=== PATIENT | female | born 1970 ===

== ENCOUNTER 2017-10-15 15:36 | Emergency (ER) | payer OTHER ==
--- NOTE | 2017-10-15 17:00 | C.PDOC ---
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 Patient states she sees a neurologist, Dr. Villegas, who has her on "medication for the ears" and meclizine. Patient reports she has occasional subjective numbness to the right hand. Patient also notes she is diabetic and did not check her sugar today. Denies vomiting or photophobia. Time Seen by Provider: 10/15/17 15:53 Chief Complaint (Nursing): Dizziness/Lightheaded History Per: Patient History/Exam Limitations: no limitations Onset/Duration Of Symptoms: Hrs Current Symptoms Are (Timing): Still Present Seizure Or Post-ictal Symptoms: None Possible Causative Factor(s): Vertigo Fall Associated With With Symptoms: No Recent travel outside of the [place]: No Past Medical History Reviewed: Historical Data, Nursing Documentation, Vital Signs Vital Signs: Last Vital Signs Temp 98.7 F 10/15/17 17:55 Pulse 77 10/15/17 17:55 Resp 16 10/15/17 17:55 BP 135/92 H 10/15/17 17:55 Pulse Ox 100 10/15/17 17:55 - Medical History PMH: HTN, Hypercholesterolemia Surgical History: No Surg Hx Family History: States: Unknown Family Hx - Social History Hx Alcohol Use: No Hx Substance Use: No Review Of Systems Constitutional: Negative for: Fever, Chills Gastrointestinal: Positive for: Nausea. Negative for: Vomiting Musculoskeletal: Negative for: Neck Pain Neurological: Positive for: Numbness (Subjective to right hand), Dizziness. Negative for: Other (Photophobia) Physical Exam - Physical Exam Appears: Non-toxic Skin: Normal Color, Warm, Dry, No Rash Head: Atraumatic, Normacephalic Eye(s): bilateral: Normal Inspection, PERRL, EOMI Ear(s): Bilateral: Normal Nose: Normal Oral Mucosa: Moist Throat: No Erythema, No Exudate Neck: Normal ROM, Supple Chest: Symmetrical, No Tenderness Cardiovascular: Rhythm Regular, No Friction Rub, No Murmur Respiratory: Normal Breath Sounds, No Rales, No Rhonchi, No Wheezing Gastrointestinal/Abdominal: Soft, No Tenderness Extremity: Normal ROM (x4), No Swelling Neurological/Psych: Oriented x3, Normal Speech, Normal Motor, Normal Sensation Gait: Steady ED Course And Treatment O2 Sat by Pulse Oximetry: 99 (Room air) Pulse Ox Interpretation: Normal Medical Decision Making Medical Decision Making: Toradol, antivert, and reglan administered. On reevaluation, patient reports improvement in symptoms and is resting comfortably in the ER in no acute distress, neuro is intact, vitals are stable, will discharge home with Rx and instructions to follow up with neurologist. Disposition - Disposition Referrals: [facility] [Outside] Disposition: HOME/ ROUTINE Disposition Time: 17:35 Condition: GOOD Additional Instructions: Follow up with the medical doctor within 1-2 days without fail. Return if worsened. 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 - Scribe Statement The provider has reviewed the documentation as recorded by the Scribjulian Eisenberg All medical record entries made by the Carlyibjulian were at my direction and personally dictated by me. I have reviewed the chart and agree that the record accurately reflects my personal performance of the history, physical exam, medical decision making, and the department course for this patient. I have also personally directed, reviewed, and agree with the discharge instructions and disposition.
[2017-10-15 17:58] VITALS: BP 135/92; PULSE 77; RESP 16; TEMP 98.7
[2017-10-16 18:21] VITALS: O2SAT 99
== END 2017-10-15 17:55 | disposition home or self-care (01) ==
LOC: C.ER 15:36
DX: R42 Dizziness and giddiness (principal); I10 Essential (primary) hypertension; E78.00 Pure hypercholesterolemia, unspecified
CPT/HCPCS: 96372; 99285; J1885

== ENCOUNTER 2018-05-01 17:12 | Emergency (ER) | payer SELFPAY ==
[2018-05-01 17:23] VITALS: TEMP 98; O2SAT 99
[2018-05-01] MEDS ORDERED: Sodium Chloride 0.9% 1,000 ML IV ONE (17:47)
--- NOTE | 2018-05-01 18:04 | RAD ---
Date of service: 05/01/2018 PROCEDURE: CHEST RADIOGRAPH, 1 VIEW HISTORY: chest pain COMPARISON: Is FINDINGS: LUNGS: Clear. PLEURA: No pneumothorax or pleural fluid seen. CARDIOVASCULAR: No aortic atherosclerotic calcification present. Normal. OSSEOUS STRUCTURES: No significant abnormalities. VISUALIZED UPPER ABDOMEN: Normal. OTHER FINDINGS: None. IMPRESSION: No active disease.
--- NOTE | 2018-05-01 18:05 | C.PDOC ---
History Of Present Illness 47 y/o female presents to the ER complaining of dizziness which has been present for the past 2 weeks. Patient states that she cannot characterize the dizziness. Patient states that feels lightheaded and weak at times. She notes that she recently recovered from viral syndrome. Denies having fever, chills, headache,CP, SOB. <Gallito Cobian - Last Filed: 05/02/18 07:36> <Kandi Lozano - Last Filed: 05/01/18 20:02> History Per: Patient History/Exam Limitations: no limitations Onset/Duration Of Symptoms: Days Current Symptoms Are (Timing): Still Present Severity: Moderate <Gallito Cobian - Last Filed: 05/02/18 07:36> Time Seen by Provider: 05/01/18 17:38 Chief Complaint (Nursing): Dizziness/Lightheaded Past Medical History Vital Signs: Last Vital Signs Temp 98 F 05/01/18 17:16 Pulse 110 H 05/01/18 17:16 Resp 18 05/01/18 17:16 BP 123/82 05/01/18 17:16 Pulse Ox 99 05/01/18 18:36 <Kandi Lozano - Last Filed: 05/01/18 20:02> Reviewed: Historical Data, Nursing Documentation, Vital Signs Vital Signs: Last Vital Signs Temp 98 F 05/01/18 17:16 Pulse 110 H 05/01/18 17:16 Resp 18 05/01/18 17:16 BP 123/82 05/01/18 17:16 Pulse Ox 99 05/01/18 17:16 - Medical History PMH: HTN, Hypercholesterolemia Surgical History: No Surg Hx Family History: States: No Known Family Hx - Social History Hx Alcohol Use: No Hx Substance Use: No <Gallito Cobian - Last Filed: 05/02/18 07:36> Review Of Systems Except As Marked, All Systems Reviewed And Found Negative. Constitutional: Negative for: Fever, Chills Cardiovascular: Negative for: Chest Pain Respiratory: Negative for: Shortness of Breath Gastrointestinal: Negative for: Nausea, Vomiting Neurological: Positive for: Dizziness. Negative for: Headache <Gallito Cobian - Last Filed: 05/02/18 07:36> Physical Exam - Physical Exam Appears: Non-toxic, No Acute Distress Skin: Normal Color, Warm, Dry Head: Atraumatic, Normacephalic Eye(s): bilateral: Normal Inspection, PERRL, EOMI Nose: Normal Oral Mucosa: Moist Neck: Supple Chest: Symmetrical Cardiovascular: Rhythm Regular Respiratory: Normal Breath Sounds, No Rales, No Rhonchi, No Wheezing Gastrointestinal/Abdominal: Soft, No Tenderness, No Guarding, No Rebound Neurological/Psych: Oriented x3, Normal Speech <Gallito Cobian - Last Filed: 05/02/18 07:36> ED Course And Treatment - Laboratory Results Result Diagrams: 05/01/18 18:48 05/01/18 18:48 Lab Results: PT 11.4 SECONDS (9.7-12.2) 05/01/18 18:48 INR 1.0 05/01/18 18:48 APTT 32 SECONDS (21-34) 05/01/18 18:48 Troponin I < 0.0120 ng/mL (0.00-0.120) 05/01/18 18:48 Total Bilirubin 0.4 mg/dL (0.2-1.3) 05/01/18 18:48 AST 28 U/L (14-36) 05/01/18 18:48 ALT 30 U/L (9-52) 05/01/18 18:48 Alkaline Phosphatase 121 U/L (38-126) 05/01/18 18:48 Total Protein 8.3 g/dL (6.3-8.3) 05/01/18 18:48 Albumin 4.8 g/dL (3.5-5.0) 05/01/18 18:48 Globulin 3.5 gm/dL (2.2-3.9) 05/01/18 18:48 Albumin/Globulin Ratio 1.4 (1.0-2.1) 05/01/18 18:48 Urine Color Yellow (YELLOW) 05/01/18 18:48 Urine Clarity Clear (Clear) 05/01/18 18:48 Urine pH 5.0 (5.0-8.0) 05/01/18 18:48 Ur Specific [place] 1.005 (1.003-1.030) 05/01/18 18:48 Urine Protein Negative mg/dL (NEGATIVE) 05/01/18 18:48 Urine Glucose (UA) Normal mg/dL (Normal) 05/01/18 18:48 Urine Ketones Negative mg/dL (NEGATIVE) 05/01/18 18:48 Urine Blood 1+ (NEGATIVE) H 05/01/18 18:48 Urine Nitrate Negative (NEGATIVE) 05/01/18 18:48 Urine Bilirubin Negative (NEGATIVE) 05/01/18 18:48 Urine Urobilinogen Normal mg/dL (0.2-1.0) 05/01/18 18:48 Ur Leukocyte Esterase Neg Tammy/uL (Negative) 05/01/18 18:48 Urine WBC (Auto) < 1 /hpf (0-5) 05/01/18 18:48 Urine RBC (Auto) 8 /hpf (0-3) H 05/01/18 18:48 Ur Squamous Epith Cells 9 /hpf (0-5) H 05/01/18 18:48 - CT Scan/US mri brain 02/10/18 Other Rad Studies (CT/US): Read By Radiologist, Radiology Report Reviewed CT/US Interpretation: Accession No. : [id number]. Patient Name / ID : ANN DE LOS SANTOS / [id number]. Exam Date : 02/10/2018 10:56:50 ( Approved ). Study Comment : Sex / Age : F / 47Y. Creator : Maricarmen Bonilla MD. Dictator : Maricarmen Bonilla MD. Hot Pipe Gauger : Testing And Regulating Technician : Maricarmen Bonilla MD. Approver2 : Report Date : 02/10/2018 13:22:07. My Comment : . Date of service: 02/10/2018. PROCEDURE: MRI BRAIN WITH AND WITHOUT CONTRAST. HISTORY: VERTIGO. COMPARISON: None available. TECHNIQUE: Multiplanar, multisequence MR images of the brain were obtained with and without intravenous contrast enhancement. FINDINGS: HEMORRHAGE: None. DWI: No evidence of an acute or early subacute infarction. BRAIN PARENCHYMA: Campbell-white matter differentiation is preserved. There is no mass, mass effect or abnormal extra- axial fluid collection. There is no territorial infarction. The midline sagittal structures are normal. ENHANCEMENT: No abnormal intracranial enhancement. VENTRICLES: There is mild age advanced global parenchymal volume loss and proportionate enlargement of the ventricles and cortical sulci. CRANIUM: There is normal bone marrow signal pattern. ORBITS: Grossly unremarkable. PARANASAL SINUSES/MASTOIDS: There is mild mucosal thickening in the paranasal sinuses and a retention cyst/polyp in the left maxillary sinus. The mastoid air cells are clear. VASCULAR SYSTEM: There are normal signal voids in the larger intracranial arteries. OTHER FINDINGS: None . IMPRESSION: No acute intracranial abnormality. Mild age advanced global parenchymal volume loss. Retention cyst/polyp in the left maxillary sinus. mri brain/auditory canals 03/03/18 Other Rad Studies (CT/US): Read By Radiologist, Radiology Report Reviewed CT/US Interpretation: Accession No. : [id number]. Patient Name / ID : ANN DE LOS SANTOS / [id number]. Exam Date : 03/03/2018 13:14:22 ( Approved ). Study Comment : Sex / Age : F / 47Y. Creator : Ghanshyam Lopez MD. Dictator : Ghanshyam Lopez MD. Hot Pipe Gauger : Testing And Regulating Technician : Ghanshyam Lopez MD. Approver2 : Report Date : 03/03/2018 15:10:31. My Comment : . Date of service: 03/03/2018. PROCEDURE: MRI OF THE BRAIN AND INTERNAL AUDITORY CANALS WITH AND WITHOUT CONTRAST. HISTORY: RECURRENT DIZZINESS/VERTIGO. COMPARISON: None available. TECHNIQUE: Multiplanar, multisequence MR images of the brain and posterior fossa were obtained with and without contrast. High-resolution posterior fossa and images through the cerebellopontine angle and internal auditory canals included: Axial 3-D fiesta, axial T1 pre-and postcontrast enhanced and coronal T1 pre-and postcontrast enhanced. FINDINGS: IAC/CP ANGLES: INTERNAL AUDITORY CANALS: Unremarkable. CEREBELLOPONTINE ANGLES: Unremarkable. INNER EAR STRUCTURES: Unremarkable. Normally formed cochlea and semicircular canals. No signal abnormality or abnormal enhancement in the membranous labyrinth of the cochlea, vestibule or the semicircular canals. BRAINSTEM: Unremarkable. MASTOIDS: Clear. OTHER: No other notable findings. BRAIN (LIMITED): No mass effect or edema. PARANASAL SINUSES: 3 centimeter left maxillary sinus retention cyst/polyp. IMPRESSION: 3 centimeter left maxillary sinus retention cyst/polyp.Unremarkable pre and post contrast enhanced MRI of the Brain and IACs. <Kandi Lozano - Last Filed: 05/01/18 20:02> - Laboratory Results Result Diagrams: 05/01/18 18:48 05/01/18 18:48 ECG: Interpreted By Me, Viewed By Me ECG Rhythm: Sinus Rhythm Interpretation Of ECG: NSR with no ST/ T wave changes Rate From EC O2 Sat by Pulse Oximetry: 99 (RA) Pulse Ox Interpretation: Normal <Gallito Cobian - Last Filed: 05/02/18 07:36> Medical Decision Making Medical Decision Making: non specific dizziness - ro metabolci infectious cardiac etiology noted neg recnt mri Plan: --Labs --EKG --CXR --IV Fluids endorsed ot awake overnight monitor pending labs and final dispoo <Gallito Cobian - Last Filed: 05/02/18 07:36> Disposition Counseled Patient/Family Regarding: Studies Performed, Diagnosis, Need For Followup, Rx Given - Disposition Disposition Time: 20:00 <Kandi Lozano - Last Filed: 05/01/18 20:02> <Gallito Cobian - Last Filed: 05/02/18 07:36> - Disposition Referrals: Preston Gomez MD [Staff Provider] - Disposition: HOME/ ROUTINE Condition: STABLE Additional Instructions: FOLLOW UP WITH DR GOMEZ SCHEDULED THIS TUESDAY DRINK PLENTY OF FLUIDS USE MECLIZINE 25MG NEEDED RETURN TO EMERGENCY ROOM IF YOUR SYMPTOMS BECOME WORSE SEGUIRSE CON EL DR GOMEZ CHELSEA EST PROGRAMADO ROSHAN JUEVES BEBER MUCHO LQUIDO UTILIZAR MECLIZINE 25MG CHELSEA SE NECESITE VUELVA A LA ELIZA DE EMERGENCIA SI KILEY SNTOMAS SE HACEN PEOR Prescriptions: RX: Meclizine [Meclizine*] 25 mg PO Q6 #15 tab Instructions: Dizziness, Nonvertigo, (DC) Forms: [employer] (Trinidadian) Print Language: CYMRO - Clinical Impression Clinical Impression: Dizziness, Light-headedness - Scribe Statement The provider has reviewed the documentation as recorded by the Scribe Marlen Blanchard Provider Attestation: All medical record entries made by the Scribe were at my direction and personally dictated by me. I have reviewed the chart and agree that the record accurately reflects my personal performance of the history, physical exam, medical decision making, and the department course for this patient. I have also personally directed, reviewed, and agree with the discharge instructions and disposition. <Gallito Cobian - Last Filed: 05/02/18 07:36> Addendum Addendum: 05/01/18 19:55 Patient currently resting comfortably, states she feels some mild light- headedness, but symptoms have improved. She admits to symptoms tom ng present for approx 1 year, has had outpatient MRI that was normal (January 2018 as per patient). Patient has Rx for meclizine, has been taking 12.5mg without relief. She has scheduled appt with ENT Dr. Gomez this . Patient instructed to increase meclizine to 25mg and follow up with Dr. Gomez as scheduled. She understands she should return to ED if her symptoms worsen. <Kandi Lozano - Last Filed: 05/01/18 20:02>
[2018-05-01 19:00] LABS: BASO # 0.1 K/uL (0.0-0.2); BASO % 0.5 % (0.0-2.0); EOS % 0.3 % (0.0-4.0); HEMOGLOBIN 14.1 g/dL (11.0-16.0); LYMPH # 1.7 K/uL (1.0-4.3); LYMPH % 15.9 % (20.0-40.0); MEAN CELL VOLUME 84.9 fL (81.0-99.0); MEAN CORPUSCULAR HEMOGLOBIN 27.9 pg (27.0-31.0); MEAN CORPUSCULAR HGB CONC 32.8 g/dL (33.0-37.0); MEAN PLATELET VOLUME 7.4 fL (7.2-11.7); MONO # 0.6 K/uL (0.0-0.8); MONO % 5.4 % (0.0-10.0); NEUT # 8.1 K/uL (1.8-7.0); NEUT % 77.9 % (50.0-75.0); NRBC % 0.1 % (0.0-2.0); RBC 5.04 Mil/uL (3.80-5.20); RED CELL DISTRIBUTION WIDTH 14.4 % (11.5-14.5); WHITE BLOOD COUNT 10.4 K/uL (4.8-10.8)
[2018-05-01 19:04] LABS: SQUAMOUS EPITHIAL 9 /hpf (0-5); URINE BILIRUBIN NEGATIVE (NEGATIVE); URINE BLOOD 1+ (NEGATIVE); URINE CLARITY Clear (Clear); URINE COLOR Yellow (YELLOW); URINE GLUCOSE (UA) NORMAL (Normal); URINE LEUKOCYTE ESTERASE NEG Leu/uL (Negative); URINE PROTEIN NEGATIVE (NEGATIVE); URINE UROBILINOGEN NORMAL mg/dL (0.2-1.0)
[2018-05-01 19:06] LABS: ALB/GLOB RATIO 1.4 (1.0-2.1); ALBUMIN 4.8 g/dL (3.5-5.0); ALT/SGPT 30 U/L (9-52); AST/SGOT 28 U/L (14-36); BLOOD UREA NITROGEN 19 mg/dL (7-17); CALCIUM 9.5 mg/dl (8.6-10.4); GFR NON-AFRICAN AMERICAN 48
[2018-05-01] MEDS ORDERED: Sodium Chloride 0.9% 1,000 ML ONE (19:06)
[2018-05-01 19:10] LABS: PROTHROMBIN TIME 11.4 SECONDS (9.7-12.2)
[2018-05-01 20:07] VITALS: BP 120/80; PULSE 80; RESP 14
== END 2018-05-01 20:07 | disposition home or self-care (01) ==
LOC: C.ER 17:12
DX: R42 Dizziness and giddiness (principal)
CPT/HCPCS: 71045; 80053; 81001; 82948; 84484; 85025; 85610; 85730; 87804; 96360; 99285; J7030

== ENCOUNTER 2018-07-03 09:40 | Emergency (ER) | payer SELFPAY ==
--- NOTE | 2018-07-03 11:35 | C.PDOC ---
History Of Present Illness 47 y/o female,w/PMhx of diabetes and HTN, presents to the ER for elevated potassium levels. Patient states that she was evaluated for dizziness and neck pain in the clinic 1 week ago. At the time, she was treated with muscle relaxers and NSAID's. Patient reports that she also had bloodwork which showed potassium levels 7. She notes that she was referred to the ER for further evaluation and treatment. Patient denies having fever,chills,headache,dizziness, CP,SOB, palpitations, nausea, and vomiting. Time Seen by Provider: 07/03/18 09:59 Chief Complaint (Nursing): Abnormal Labs History Per: Patient History/Exam Limitations: no limitations Past Medical History Reviewed: Historical Data, Nursing Documentation, Vital Signs Vital Signs: Last Vital Signs Temp 97.7 F 07/03/18 10:00 Pulse 85 07/03/18 10:00 Resp 18 07/03/18 10:00 BP 118/76 07/03/18 10:00 Pulse Ox 99 07/03/18 10:00 - Medical History PMH: HTN, Hypercholesterolemia Surgical History: No Surg Hx Family History: States: No Known Family Hx - Social History Hx Alcohol Use: No Hx Substance Use: No - Immunization History Hx Tetanus Toxoid Vaccination: (unkown) Hx Influenza Vaccination: Yes Hx Pneumococcal Vaccination: (not sure) Review Of Systems Except As Marked, All Systems Reviewed And Found Negative. Constitutional: Negative for: Fever, Chills Cardiovascular: Negative for: Chest Pain Respiratory: Negative for: Shortness of Breath Gastrointestinal: Negative for: Nausea, Vomiting Physical Exam - Physical Exam Appears: Non-toxic, No Acute Distress Skin: Normal Color, Warm, Dry Head: Atraumatic, Normacephalic Eye(s): bilateral: Normal Inspection Nose: Normal Oral Mucosa: Moist Neck: Supple Chest: Symmetrical Cardiovascular: Rhythm Regular Respiratory: Normal Breath Sounds, No Rales, No Rhonchi, No Wheezing Gastrointestinal/Abdominal: Normal Exam, Soft, No Tenderness, No Guarding, No Rebound Neurological/Psych: Oriented x3, Normal Speech ED Course And Treatment - Laboratory Results Result Diagrams: 07/03/18 11:33 07/03/18 11:33 ECG: Interpreted By Me, Viewed By Me ECG Rhythm: Sinus Rhythm Interpretation Of ECG: NSR with normal axises and no acute ST/T wave changes Rate From EC O2 Sat by Pulse Oximetry: 99 (RA) Pulse Ox Interpretation: Normal Progress Note: Labs and ECG ordered and reviewed. Patient has been discharged home. Disposition Counseled Patient/Family Regarding: Diagnosis, Need For Followup - Disposition Referrals: [facility] [Outside] Disposition: HOME/ ROUTINE Disposition Time: 13:10 Condition: STABLE Forms: [facility] (Turkmen), General Discharge Instructions - Clinical Impression Clinical Impression: Visit for blood test - Scribe Statement The provider has reviewed the documentation as recorded by the Alena Blanchard Provider Attestation: All medical record entries made by the Carlyibe were at my direction and personally dictated by me. I have reviewed the chart and agree that the record accurately reflects my personal performance of the history, physical exam, medical decision making, and the department course for this patient. I have also personally directed, reviewed, and agree with the discharge instructions and disposition.
[2018-07-03 11:41] LABS: BASO % 0.5 % (0.0-2.0); EOS # 0.1 K/uL (0.0-0.7); EOS % 0.7 % (0.0-4.0); HEMOGLOBIN 13.9 g/dL (11.0-16.0); LYMPH # 1.6 K/uL (1.0-4.3); LYMPH % 19.3 % (20.0-40.0); MEAN CELL VOLUME 85.3 fL (81.0-99.0); MEAN CORPUSCULAR HEMOGLOBIN 28.9 pg (27.0-31.0); MEAN CORPUSCULAR HGB CONC 33.9 g/dL (33.0-37.0); MEAN PLATELET VOLUME 7.3 fL (7.2-11.7); MONO # 0.4 K/uL (0.0-0.8); MONO % 5.3 % (0.0-10.0); NEUT # 6.1 K/uL (1.8-7.0); NEUT % 74.2 % (50.0-75.0); RBC 4.82 Mil/uL (3.80-5.20); RED CELL DISTRIBUTION WIDTH 14.7 % (11.5-14.5); WHITE BLOOD COUNT 8.2 K/uL (4.8-10.8)
[2018-07-03 12:02] LABS: ALB/GLOB RATIO 1.4 (1.0-2.1); ALBUMIN 4.7 g/dL (3.5-5.0); ALT/SGPT 28 U/L (9-52); AST/SGOT 34 U/L (14-36); BLOOD UREA NITROGEN 22 mg/dL (7-17); GFR NON-AFRICAN AMERICAN 53
[2018-07-03 13:40] VITALS: BP 114/82; PULSE 72; RESP 16; TEMP 98
[2018-07-03 13:43] VITALS: O2SAT 99
--- NOTE | 2018-07-05 21:29 | CARD ---
APPROVED REPORT Date of service: 07/03/2018 EKG Measurement Heart [id number] <Conclusion> Normal sinus rhythm Normal ECG
== END 2018-07-03 13:40 | disposition home or self-care (01) ==
LOC: C.ER 09:40
DX: Z04.89 Encounter for examination and observation for other specified reasons (principal)